=== PATIENT | female | born 1960 | race American Indian/Alaskan Native ===

== ENCOUNTER 2021-04-07 08:00 | Outpatient (CLI) | payer OTHER | END 2021-04-07 08:30 | disposition home or self-care (01) | LOC: PPH VACUNA 08:00 | DX: Z23 Encounter for immunization (principal) ==

== ENCOUNTER 2021-04-28 08:00 | Outpatient (CLI) | payer OTHER | END 2021-04-28 08:30 | disposition home or self-care (01) | LOC: PPH VACUNA 08:00 | DX: Z23 Encounter for immunization (principal) ==

== ENCOUNTER 2021-05-21 10:06 | Outpatient (CLI) | payer OTHER | END 2021-05-21 10:14 | disposition home or self-care (01) | LOC: SONOGRAMA 10:06 | DX: E04.8 Other specified nontoxic goiter (principal) ==

== ENCOUNTER 2021-06-15 10:48 | Outpatient (CLI) | payer OTHER | END 2021-06-15 10:49 | disposition home or self-care (01) | LOC: NUCLEAR 10:48 | PROVIDERS: ATTEND Obstetrics & Gynecology Obstetrics | DX: M81.0 Age-related osteoporosis without current pathological fracture (principal) ==